=== PATIENT | female | born 1935 | race Caucasian/White ===

== ENCOUNTER 2023-01-02 08:57 | Emergency (ER) | payer MEDICARE, OTHER, SELFPAY ==
[2023-01-02 09:00] VITALS: BP 208/96; PULSE 92; RESP 16; TEMP 36.1; O2SAT 100; BMI 19.1
--- NOTE | 2023-01-02 09:12 | EX.ED.DYSGE1 ---
HPI History of Present Illness Chief Complaint: General Illness Narrative Narrative: 87-year-old female relates history that she had an episode of shortness of breath a few weeks ago, went to her primary care provider, who performed a chest x-ray. She states that they saw something they did not like and wanted to get a CT scan of her chest with IV contrast. She states that she went to get a CT performed recently, but they told her she was too dehydrated. They did laboratory work yesterday, called her and told her she needed to get to the emergency department, but she did not come. She states that they called her today and told her that she needed to get to the emergency department immediately because she was severely dehydrated and they mention something about my kidneys. She also states that they told her that if she did not go to the emergency department that she could . She states that she feels well, no chest pain or shortness of breath. She is still making urine the same amount as usual. 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 PFSH PFS Home Medications tramadol 50 mg tablet 50 mg PO TID PRN pain 3 days #9 tabs 01/02/23 [Rx Last Taken Unknown] Allergy/AdvReac Type Severity Reaction Status Date / Time cephalexin Allergy Other Verified 01/02/23 09:00 Social History Smoking Status: Never smoker ROS ROS ED ROS Narrative Constitutional: No fever, no chills. HEENT: No sore throat. No neck pain. No loss of vision. No rhinorrhea. Cardiovascular: No chest pain. No palpitations. No pedal edema. Respiratory: No cough, no shortness of breath. Abdominal: No abdominal pain. No nausea. No vomiting. Genitourinary: No dysuria. No hematuria. Musculoskeletal: No myalgias. No arthralgias. Neurologic: No headaches. No dizziness. No lightheadedness. Skin: No rash. No change in color. Psychiatric: No depression. No anxiety. EXAM Physical Exam Narrative Exam Narrative: Afebrile. Vital signs noted. HEENT: Normocephalic. Atraumatic. PERRL, EOMI. Neck soft and supple. No point tenderness or step off. Cardiovascular: Regular rate and rhythm. No murmurs, rubs, or gallops appreciated. Respiratory: No tachypnea. Lungs clear to auscultation bilaterally. Gastrointestinal: Abdomen soft, nontender, with normoactive bowel sounds. No rebound or guarding. Neurological: Awake. Alert. Nonfocal, nonlateralizing. Skin: No rash. Normal color. No pallor. Musculoskeletal: No pedal edema. Full range of motion extremities. Const Vital Signs: 01/02/23 09:00 01/02/23 08:58 01/02/23 10:16 Temperature 97 F L Temperature Source Temporal Pulse Rate 92 Respiratory Rate 16 Respiratory Effort Normal Non-Labored Respiratory Pattern Normal Blood Pressure 208/96 H 182/81 H Blood Pressure Mean 133 114 Pulse Ox 100 Oxygen Delivery Method Room Air MDM MDM MDM Narrative Medical decision making narrative: Patient does have elevated blood pressure. I reviewed her prior blood work and outpatient visits. Concern would be for dehydration and acute kidney injury. I will obtain a CBC and a CMP and she will be bolused normal saline. She states that they were unable to do the CT of her chest with contrast because of her kidney function and that she was dehydrated. I do not feel that she needs an emergent CTA as I am not concerned for dissection or pulmonary embolism currently. She has chest pain free and states she is not short of breath, and that was weeks ago when she was walking her dog. I reviewed her laboratory work, she has normal white count of 5.6, hemoglobin normal at 12.0, BUN is elevated at 39 with creatinine of 1.51, no prior with which to compare. Glucose appropriately elevated at 114, normal anion gap of 9. Urinalysis obtained and is negative for ketones or infection. I do not feel antibiotics are indicated. I did discuss the patient with her primary care provider, Dr. Ria Mclain. She states that the patient did have an elevated creatinine and it had gone from 1.2-1.5. They are unable to get a CT scan of her chest as her chest x-ray before it showed atelectasis versus an opacity. Regardless, she was given 1 Ultram tablet here for the low back pain. I do not feel she needs emergent evaluation for her low back pain as it is has been ongoing for over a year. I wrote her prescription for 9 Ultram tablets to take as needed for pain. She will follow-up with her primary care provider. I do not feel that she requires observation. She was told to drink plenty of oral fluids and follow-up. She states she has been tolerating food and drink and denies that she has had nausea or vomiting. Disposition is discharged home in stable condition. History & Record Review Discussion w/independent historian: Patient Additional record(s) reviewed:: Prior ED visit Lab Data Attestation: I reviewed the patient's lab results. Labs: Laboratory Results - last 24 hr 01/02/23 01/02/23 01/02/23 09:20 09:20 10:24 WBC 5.6 RBC 3.94 L Hgb 12.0 Hct 37.7 MCV 95.7 MCH 30.5 MCHC 31.8 L RDW Std Deviation 45.6 H RDW Coeff of Natalie 12.9 Plt Count 132 L MPV 11.1 Immature Gran % (Auto) 0.400 Neut % (Auto) 61.0 Lymph % (Auto) 25.1 Clay % (Auto) 9.0 Eos % (Auto) 3.4 Baso % (Auto) 1.1 H Absolute Neuts (auto) 3.4 Absolute Lymphs (auto) 1.40 Nucleated RBC % 0 Sodium 140 Potassium 4.4 Chloride 107 Carbon Dioxide 24.0 Anion Gap 9 BUN 39 H Creatinine 1.51 H Estim Creat Clear Calc 19.02 Est GFR (MDRD) Af Amer 42 L Est GFR (MDRD) Non-Af 35 L BUN/Creatinine Ratio 25.8 H Glucose 114 H Calcium 8.7 Total Bilirubin 0.50 AST 17 ALT 26 Alkaline Phosphatase 52 Total Protein 6.7 Albumin 3.6 Globulin 3.1 Albumin/Globulin Ratio 1.2 Urine Color Yellow Urine Clarity Sl. Cloudy Urine pH 6.0 Ur Specific Accident 1.010 Urine Protein 15 H Urine Glucose (UA) Normal Urine Ketones Negative Urine Occult Blood 10 H Urine Nitrite Negative Urine Bilirubin Negative Urine Urobilinogen Normal Ur Leukocyte Esterase Negative Urine RBC 0-5 SEEN Urine WBC 0 SEEN Ur Squamous Epith Cells 0 SEEN Urine Bacteria 0 SEEN Urine Mucus 0 SEEN Discharge Plan Triage Chief Complaint: General Illness ED Provider: Von Kan Dx/Rx/DC Orders Clinical Impression: Acute kidney injury, Low back pain Instructions: Acute Kidney Failure Dc, ED Pain, Acute, Uncertain Cause Prescriptions: New tramadol 50 mg tablet 50 mg PO TID PRN (Reason: pain) 3 Days Qty: 9 0RF Primary Care Provider: Ria Mclain Referrals: Aziza Cruz DO [Med Staff - [employer]] - Ria Mclain MD [Primary Care Provider] - 3-5 Days if not improving Disposition Disposition: Home, Self Care
[2023-01-02] MEDS: 0.9% Normal Saline 1,000 ML 1000 ML IV (09:30)
[2023-01-02 09:31] LABS: Absolute Neutrophil Count 3.4 X10^3/uL (2.0-7.7); Basophil# 0.06 X10^3/uL; Basophil% 1.1 % (0-1); Eosinophil# 0.19 X10^3/uL; Eosinophils% 3.4 % (0-5); Hematocrit 37.7 % (37-47); Lymphocyte % 25.1 % (19-41); Mean Corp Hgb Conc 31.8 g/dL (32-36); Mean Corpuscular Hgb 30.5 pg (27.0-32.0); Mean Corpuscular Volume 95.7 fL (81-99); Mean Platelet Vol. 11.1 fl (6.2-12.0); NRBC Flagged by Analyzer 0 % (0-5); Platelet Count 132 K/mm3 (150-450); RBC Distribution Width CV 12.9 % (11.6-14.6); RBC Distribution Width SD 45.6 fl (35.1-43.9); Red Blood Count 3.94 M/mm3 (4.2-5.4); White Blood Count 5.6 K/mm3 (4.4-11.0)
[2023-01-02 09:44] LABS: ALB/GLOB Ratio 1.2 RATIO (0.9-2.4); AST(SGOT) 17 U/L (15-37); Alanine Aminotransfer ALT/SGPT 26 U/L (13-56); Albumin, Serum 3.6 g/dL (3.2-5.0); Alkaline Phosphatase 52 U/L (45-117); Anion Gap 9 (5-15); BUN 39 mg/dL (7-18); BUN/Creat Ratio 25.8 RATIO (10-20); Calcium,Total 8.7 mg/dL (8.5-10.1); Chloride 107 mmol/L (98-107); Creatinine, Serum 1.51 mg/dL (0.55-1.02); EST Glomerular Filtration Rate 35 mL/min (>60); Est Glom Filt Rate - Afr Amer 42 mL/min (>60); Estimated Creatinine Clearance 19.02 ml/min; Globulin 3.1 g/dL (2.2-4.2); Glucose 114 mg/dL (74-106); Potassium 4.4 mmol/L (3.5-5.1); Protein, Total 6.7 g/dL (6.4-8.2); Sodium Level 140 mmol/L (136-145)
[2023-01-02 10:16] VITALS: BP 182/81
[2023-01-02 10:29] LABS: Bacteria 0 SEEN /hpf (None Seen); Mucous, Urine 0 SEEN /hpf (<or=2+); Squamous Epithelial Cells - UA 0 SEEN /hpf (5-10); White Blood Cells 0 SEEN /hpf (0-5)
[2023-01-02 10:30] LABS: Color, Urine Yellow (Yellow); Glucose, Dipstick Normal (Normal); Ketone-Dipstick Negative (Negative); Leukocyte Esterase-Dipstick Negative /ul (Negative); Nitrite-Dipstick Negative (Negative); Occult Blood-Urine 10 /ul (Negative); Protein-Dipstick 15 mg/dl (Negative); Urine Bilirubin Dipstick Negative (Negative); Urine Clarity Sl. Cloudy (Clear); Urine Urobilinogen Normal (Normal)
[2023-01-02] MEDS: traMADol 50 MG Tablet PO (10:30)
[2023-01-02 10:38] LABS: Red Blood Cells-Urine 0-5 SEEN /hpf (0-5)
[2023-01-02 11:17] VITALS: BP 131/74; PULSE 86; RESP 16; O2SAT 99
== END 2023-01-02 11:18 | disposition home or self-care (01) ==
PROVIDERS: Emergency Provider Emergency Medicine; PCP Internal Medicine; Visit Provider Emergency Medicine
DX: S37.009A Unspecified injury of unspecified kidney, initial encounter (principal); M54.50 Low back pain, unspecified
CPT/HCPCS: 80053; 81001; 85025; 96360; 99284; J7030; A4216